=== PATIENT | female | born 1995 | race Caucasian/White ===

== ENCOUNTER 2023-03-01 07:27 | Emergency (ER) | payer MEDICAID ==
[~2023-03-01] VITALS: Ht 177.8 cm; Wt 79.1 kg
[2023-03-01 07:27] VITALS: BP 136/92; PULSE 92; RESP 18; O2SAT 97
[2023-03-01 08:30] LABS: Urine Bacteria NONE SEEN /hpf (None Seen); Urine Blood Negative /uL (Negative); Urine Clarity HAZY (Clear); Urine Color Yellow (Yellow); Urine Mucus MODERATE (None Seen); Urine Protein, UAD 2+ (Negative); Urine Specific Gravity 1.024 (1.001-1.035); Urine WBC 10 /hpf (0 - 5)
[2023-03-01 08:32] LABS: Alanine Aminotransferase 123 U/L (7-40); Albumin 4.8 g/dL (3.2-4.8); Alkaline Phosphatase 138 U/L (46-116); Anion Gap 7.7 (5-15); Aspartate Aminotransferase 254 U/L (13-40); Calcium 9.4 mg/dL (8.5-10.1); Carbon Dioxide 24.3 mmol/L (20-30); Chloride 108 mmol/L (98-107); Glucose 87 mg/dL (74-106); Potassium 3.5 mmol/L (3.5-5.1); Sodium 140 mmol/L (136-145)
[2023-03-01 08:33] LABS: Bilirubin, Total 1.6 mg/dL (0.2-1.0); Total Protein 7.5 g/dL (5.7-8.2)
[2023-03-01 08:35] LABS: Basophils # (auto) 0 10 ^3/uL (0-0.2); Basophils % (auto) 0.5 % (0.0-2.0); Eosinophils # (auto) 0.1 10 ^3/uL (0-0.8); Eosinophils % (auto) 1.6 % (0.0-7.0); Hematocrit 47.3 % (36.0-46.0); Hemoglobin 16.1 g/dL (12.2-16.2); Lymphocytes # (auto) 0.6 10 ^3/uL (0.4-5.4); Lymphocytes % (auto) 16.7 % (10.0-50.0); Mean Corpuscular Hemoglobin 33.7 pg (28.0-32.0); Mean Corpuscular Volume 99.2 fL (80.0-100.0); Monocytes # (auto) 0.4 10 ^3/uL (0-1.3); Monocytes % (auto) 12.1 % (0.0-12.0); Neutrophils # (auto) 2.6 10 ^3/uL (1.6-8.6); Neutrophils % (auto) 69.1 % (37.0-80.0); Nucleated Red Blood Cells % 0.2 %; Red Blood Cells 4.77 10^6/uL (4.0-5.20); Red Cell Distribution Width 13.1 % (11.8-14.3); White Blood Cell 3.7 10^3/uL (4.4-10.8)
[2023-03-01 08:36] LABS: Blood Urea Nitrogen < 5 mg/dL (9-23)
== END 2023-03-01 11:55 | disposition left against medical advice (07) ==
LOC: ER 07:27
DX: R10.9 Unspecified abdominal pain (principal); Z53.21 Procedure and treatment not carried out due to patient leaving prior to being seen by health care provider
CPT/HCPCS: 36415; 80053; 81001; 85025

== ENCOUNTER 2023-05-17 18:22 | Emergency (ER) | payer MEDICAID ==
[~2023-05-17] VITALS: Ht 177.8 cm; Wt 84.5 kg
[2023-05-17 18:28] VITALS: BP 135/96; PULSE 97; RESP 16; O2SAT 96
== END 2023-05-18 00:32 | disposition left against medical advice (07) ==
LOC: ER 18:22
DX: S61.211A Laceration without foreign body of left index finger without damage to nail, initial encounter (principal); Z53.21 Procedure and treatment not carried out due to patient leaving prior to being seen by health care provider; W27.0XXA Contact with workbench tool, initial encounter; Y93.89 Activity, other specified; Y92.89 Other specified places as the place of occurrence of the external cause; Y99.8 Other external cause status

== ENCOUNTER 2023-07-22 14:55 | Emergency (ER) | payer MEDICAID ==
[~2023-07-22] VITALS: Ht 167.6 cm; Wt 65.0 kg
[2023-07-22 14:55] VITALS: BP 130/90; RESP 24; TEMP 98.7; O2SAT 99
[2023-07-22 15:36] VITALS: PULSE 98
[2023-07-22 16:21] LABS: Urine Bacteria NONE SEEN /hpf (None Seen); Urine Blood Negative /uL (Negative); Urine Clarity Clear (Clear); Urine Color Colorless (Yellow); Urine Protein, UAD TRACE (Negative); Urine Specific Gravity 1.002 (1.001-1.035); Urine Urobilinogen Normal (Negative); Urine WBC 9 /hpf (0 - 5)
[2023-07-22 16:28] LABS: Amphetamine Screen, Urine Neg (NEGATIVE); Benzodiazephine Screen, Urine Neg (NEGATIVE)
[2023-07-22 16:29] LABS: Barbiturate Scree,Urine Neg (NEGATIVE); Cannabinoid Screen, Urine Neg (NEGATIVE); Cocaine Screen, Urine Neg (NEGATIVE); Opiate Scree,Urine Neg (NEGATIVE); Phencyclidine Screen, Urine Neg (NEGATIVE)
[2023-07-22 16:39] LABS: Basophils # (auto) 0 10 ^3/uL (0-0.2); Eosinophils # (auto) 0 10 ^3/uL (0-0.8); Eosinophils % (auto) 0.1 % (0.0-7.0); Hemoglobin 16.3 g/dL (12.2-16.2); Mean Corpuscular Hgb Conc. 34.7 g/dL (32.0-36.0); Monocytes # (auto) 0.8 10 ^3/uL (0-1.3); Neutrophils # (auto) 7.3 10 ^3/uL (1.6-8.6)
[2023-07-22 16:41] LABS: Basophils % (auto) 0.2 % (0.0-2.0); Hematocrit 46.9 % (36.0-46.0); Lymphocytes # (auto) 0.6 10 ^3/uL (0.4-5.4); Lymphocytes % (auto) 7.3 % (10.0-50.0); Mean Corpuscular Hemoglobin 34.1 pg (28.0-32.0); Mean Corpuscular Volume 98.3 fL (80.0-100.0); Monocytes % (auto) 8.8 % (0.0-12.0); Neutrophils % (auto) 83.6 % (37.0-80.0); Nucleated Red Blood Cells % 0.3 %; Red Blood Cells 4.77 10^6/uL (4.0-5.20); Red Cell Distribution Width 13.3 % (11.8-14.3); White Blood Cell 8.7 10^3/uL (4.4-10.8)
[2023-07-22] MEDS ORDERED: NITR-87 PO (18:12)
== END 2023-07-22 17:58 | disposition home or self-care (01) ==
LOC: EDBD 14:55 → ER 14:55
DX: R55 Syncope and collapse (principal); F41.9 Anxiety disorder, unspecified; N39.0 Urinary tract infection, site not specified; F10.129 Alcohol abuse with intoxication, unspecified; Z79.899 Other long term (current) drug therapy; Y90.8 Blood alcohol level of 240 mg/100 ml or more
CPT/HCPCS: 36415; 80307; 80320; 81001; 81025; 83880; 85025; 93005